=== PATIENT | female | born 1970 | race Two or more races ===

== ENCOUNTER 2024-03-03 08:23 | Inpatient (IN) | payer OTHER ==
[~2024-03-03] VITALS: Ht 61 cm; Wt 99.8 kg
[2024-03-03] MEDS ORDERED: METOLAZONE2.5 MG PO (09:02)
[2024-03-03] MEDS ORDERED: FOLIC ACID0.4 MG (09:03)
[2024-03-03] MEDS ORDERED: VITAMIN B-1250 MCG (09:04)
[2024-03-03] MEDS ORDERED: PROTONIX40 MG PO (09:04)
[2024-03-03] MEDS ORDERED: GRALISE600 MG (09:05)
[2024-03-03] MEDS ORDERED: PEPCID AC20 MG (09:05)
[2024-03-03] MEDS ORDERED: CRESTOR40 MG PO (09:06)
[2024-03-11] MEDS ORDERED: CEFAZOLIN SODIUM 1,000 MG VIAL ONE (09:39)
[2024-03-11] MEDS ORDERED: POVIDONE-IODINE 118 ML BOTT TOP ONE ×2 (10:36→10:50)
[2024-03-11] MEDS ORDERED: BUPIVACAINE HCL/MPF 0.5% 30ML VIAL ONE (10:55)
[2024-03-11] MEDS ORDERED: CHLORHEXIDINE GLUCONATE 120 ML BOTTLE TOP ONE (11:09)
[2024-03-11] MEDS ORDERED: THROMBIN,HU/FIBRINOGEN/CALCIUM 10 ML SYRINGE TOP ONE ×2 (13:16→13:30)
[2024-03-11] MEDS ORDERED: VISTASEAL DUAL APPICATOR 1 EACH APPL TOP ONE ×2 (13:16→13:30)
[2024-03-11] MEDS ORDERED: SUGAMMADEX SODIUM 200 MG/2 ML VIAL IV ONE ×2 (13:30→13:57)
[2024-03-11] MEDS ORDERED: ONDANSETRON HCL 2 MG/ML VIAL IV PRN (15:15)
[2024-03-11] MEDS ORDERED: RINGERS SOLUTION,LACTATED 1,000 ML IV SCH (15:15)
[2024-03-11] MEDS ORDERED: MORPHINE SULFATE 4 MG/ML CARTRIDGE IV PRN (15:30)
[2024-03-11] MEDS ORDERED: MORPHINE SULFATE 4 MG/ML VIAL IV ONE ×2 (16:00→16:30)
[2024-03-11] MEDS ORDERED: CEFOXITIN SODIUM 2,000 MG VIAL IV ONE (16:09)
[2024-03-11] MEDS ORDERED: CEFOXITIN SODIUM 2,000 MG VIAL IV SCH (17:00)
[2024-03-11 17:56] VITALS: BP 125/79
[2024-03-11 20:55] LABS: HEMATOCRIT 35.7 % (36.0-45.00); HEMOGLOBIN 12.1 g/dL (12.0-15.00); MEAN CELL VOLUME 94.6 fL (80.00-100.00); MEAN CORPUSCULAR HEMOGLOBIN 31.9 pg (27.00-32.0); MEAN CORPUSCULAR HGB CONC 33.8 g/dl (32.0-36.0); PLATELET COUNT 293 K/uL (150-450); RED BLOOD COUNT 3.78 M/uL (4.00-6.00); RED CELL DISTRIBUTION WIDTH 14.7 % (11.5-14.5)
[2024-03-11] MEDS ORDERED: ENOXAPARIN SODIUM 40 MG/0.4 ML SYRINGE SUBCUTANEO SCH (21:00)
[2024-03-11] MEDS ORDERED: FAMOTIDINE/PF 20 MG/2 ML VIAL IV STA (22:58)
[2024-03-12 00:53] VITALS: BP 94/63
[2024-03-12] MEDS ORDERED: ACETAMINOPHEN WITH CODEINE 1 UDTAB TABLET PO PRN (06:00)
[2024-03-12 08:00] VITALS: BP 97/71
[2024-03-12 08:39] LABS: URINE APPEARANCE Clear; URINE BILIRRUBIN Negative (NEGATIVE); URINE BLOOD Negative; URINE COLOR Yellow; URINE GLUCOSE Negative (NEGATIVE); URINE KETONE Negative (NEGATIVE); URINE LEUKOCYTE Negative; URINE NITRATE Negative; URINE PROTEIN Negative (NEGATIVE); URINE UROBILINOGEN 0.2 E.U./dl
[2024-03-12 08:40] LABS: HEMATOCRIT 36.7 % (36.0-45.00); HEMOGLOBIN 12.6 g/dL (12.0-15.00); MEAN CELL VOLUME 92.4 fL (80.00-100.00); MEAN CORPUSCULAR HEMOGLOBIN 31.8 pg (27.00-32.0); MEAN CORPUSCULAR HGB CONC 34.5 g/dl (32.0-36.0); PLATELET COUNT 322 K/uL (150-450); RED BLOOD COUNT 3.97 M/uL (4.00-6.00); RED CELL DISTRIBUTION WIDTH 14.4 % (11.5-14.5)
[2024-03-12 08:43] LABS: URINE BACTERIA 7.3 uL (0.0-1933); URINE EPITHELIAL CELLS 1.5 uL (0.0-38.8); URINE WBC 7.1 uL (0.0-23.2)
[2024-03-12 08:50] LABS: URINE RBC 1.3 uL (0.0-20.8)
[2024-03-12] MEDS ORDERED: FAMOTIDINE/PF 20 MG/2 ML VIAL IV SCH ×2 (09:00)
[2024-03-12] MEDS ORDERED: COLACE100 MG PO (11:59)
[2024-03-12] MEDS ORDERED: TRAM1TAB98 PO (12:01)
[2024-03-12] MEDS ORDERED: KETO10TA2 PO (12:02)
== END 2024-03-12 12:15 | disposition home or self-care (01) | DRG 743 ==
LOC: O/R 03-11 05:20 → SURG 03-11 07:00 → OB/GYN 03-11 14:56
PROVIDERS: ADMIT Obstetrics & Gynecology; ATTEND Obstetrics & Gynecology
PROC: 0UT74ZZ Resection of Bilateral Fallopian Tubes, Percutaneous Endoscopic Approach (ICD-10-PCS; 2024-03-11)
PROC: 0USG4ZZ Reposition Vagina, Percutaneous Endoscopic Approach (ICD-10-PCS; 2024-03-11)
PROC: 0UT94ZZ Resection of Uterus, Percutaneous Endoscopic Approach (ICD-10-PCS; principal; 2024-03-11 07:00)
DX: D25.2 Subserosal leiomyoma of uterus (principal); N84.0 Polyp of corpus uteri; N92.1 Excessive and frequent menstruation with irregular cycle